=== PATIENT | female | born 1945 | race African-American/Black ===

== ENCOUNTER 2022-10-14 06:56 | Day surgery (SDC) | payer OTHER ==
[~2022-10-14] VITALS: Ht 162.6 cm; Wt 91.2 kg
[2022-10-14] MEDS ORDERED: CEFAZOLIN SOD 2 GM in D5W 50 ML IV ONE (07:00)
[2022-10-14] MEDS ORDERED: KETOROLAC TROMETHAMINE 30 MG VIAL ONE (09:20)
[2022-10-14] MEDS ORDERED: HYDROmorphone 2 MG/ML VIAL ONE (09:20)
[2022-10-14] MEDS ORDERED: DEXAMETHASONE SOD PHOSPHATE 4 MG/ML VIAL ONE (09:20)
[2022-10-14] MEDS ORDERED: SUGAMMADEX SODIUM 200 MG/2 ML VIAL IV ONE (09:20)
[2022-10-14] MEDS ORDERED: SUCCINYLCHOLINE CHLORIDE 20 MG/ML(QUELICIN) ONE (09:20)
[2022-10-14] MEDS ORDERED: NS IRRIG SOLN 1000 ML IR ONE (09:20)
[2022-10-14] MEDS ORDERED: PROPOFOL 200MG/ 20ML VIAL (DIPRIVAN) IV ONE (09:20)
[2022-10-14] MEDS ORDERED: NS 1000 ML IV.SOLN IV ONE (09:20)
[2022-10-14] MEDS ORDERED: BUPIVACAINE /PF 0.5% 30 ML VIAL ONE (09:20)
[2022-10-14] MEDS ORDERED: fentaNYL CITRATE/PF 100 MCG/2 ML AMP ONE (09:20)
[2022-10-14] MEDS ORDERED: ONDANSETRON HCL 4 MG/2 ML VIAL ONE (09:20)
[2022-10-14] MEDS ORDERED: LR 1,000 ML IV.SOLN IV ONE (09:20)
[2022-10-14] MEDS ORDERED: traMADol HCL HCL 50 MG TABLET (ULTRAM) PO PRN (12:15)
[2022-10-14 15:54] VITALS: BP_SYST 135
== END 2022-10-14 13:05 | disposition home or self-care (01) ==
LOC: SDS 06:56 → SMU 06:58 → SDS 13:05
PROVIDERS: ATTEND Surgery
DX: K80.12 Calculus of gallbladder with acute and chronic cholecystitis without obstruction (principal); I10 Essential (primary) hypertension; Z79.899 Other long term (current) drug therapy
CPT/HCPCS: 87081; 47562; 88304; J3490 ×2; J0690; J1100; J1885; J2405; J2704; J0330; J3010; J1170; J7060; J7120; J7030